=== PATIENT | male | born 1980 | race Caucasian/White ===

== ENCOUNTER 2016-06-22 11:49 | Emergency (ER) | payer OTHER ==
--- NOTE | 2016-06-22 12:05 | Emergency Department Report ---
Stated Complaint: BLOOD IN URINE Time Seen by Provider: 06/22/16 12:01 - HPI History of Present Illness: 35-year-old [place] male comes in today for complaint of rectal bleeding and hematuria 2 months. 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 Patient reports that a couple days ago he had nausea no vomiting denies any fever or chills. Patient has no past medical history. - Exam Physical Exam: Patient's alert and oriented 3. Vascular S1-S2 regular rate and rhythm respiratory clear to auscultation bilaterally abdomen soft nontender nondistended bowel sounds noted MSE screening note: Focused history and physical exam performed. Due to findings the following was ordered: Urinalysis CBC patient be evaluated in main fast track ED Disposition for MSE Condition: Stable
[2016-06-22 12:55] LABS: Hematocrit 41.8 % (35.5-45.6); Mean Corpuscular HGB Conc 34 % (32-34); Mean Corpuscular Hemoglobin 31 pg (28-32); Mean Corpuscular Volume 92 fl (84-94); Platelet Count 187 K/mm3 (140-440); Red Blood Count 4.56 M/mm3 (3.65-5.03); Red Cell Distribution Width 14.8 % (13.2-15.2)
[2016-06-22 13:17] LABS: Bilirubin,Urine NEG (Negative); Blood,Urine NEG (Negative); Ketones,Urine NEG (Negative); Leukocyte Esterase,Urine NEG (Negative); Nitrite,Urine NEG (Negative); Protein,Urine <15 mg/dL mg/dL (Negative); RBC,Urine < 1.0 /HPF (0.0-6.0); WBC,Urine < 1.0 /HPF (0.0-6.0)
--- NOTE | 2016-06-22 17:37 | Emergency Department Report ---
Entered by LAZ FRERER, acting as scribe for KARSON SAWYER PA. <KARSON SAWYER - Last Filed: 06/22/16 17:37> ED Male HPI - General Chief complaint: Urogenital-Male Stated complaint: BLOOD IN URINE Time Seen by Provider: 06/22/16 12:01 Source: patient Mode of arrival: Ambulatory Limitations: No Limitations - History of Present Illness Initial comments: 35 year old male presents to the ED for evaluation of dark red blood from hemorrhoids for several weeks and hematuria. Patient reports last episode of blood in urine was 2 days ago and he is not currently experiencing any pain related to hemorrhoids. 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 He reports associated nausea but denies fever, vomiting, and abdominal pain. He denies rectal bleeding at this time, dysuria, of STI concerns. blood in urine, other (nausea). denies: dysuria, fever - Related Data Previous Rx's Medication Instructions Recorded Last Taken Type Hydrocortisone [Anucort-HC SUPPOS] 25 mg RC BID #1 box 06/22/16 Unknown Rx Allergies Allergy/AdvReac Type Severity Reaction Status Date / Time No Known Allergies Allergy Unverified 06/22/16 12:11 ED Past Medical Hx - Past Medical History Additional medical history: hemorrhoids - Surgical History Past Surgical History?: No - Social History Smoking Status: Current Every Day Smoker Substance Use Type: Alcohol - Medications Home Medications: Home Medications Medication Instructions Recorded Confirmed Last Taken Type Hydrocortisone [Anucort-HC SUPPOS] 25 mg RC BID #1 box 06/22/16 Unknown Rx ED Physical Exam - General Limitations: No Limitations General appearance: alert, in no apparent distress - Head Head exam: Present: atraumatic, normocephalic - Eye Eye exam: Present: normal appearance, PERRL - Neck Neck exam: Present: normal inspection, full ROM (supple) - Respiratory Respiratory exam: Present: normal lung sounds bilaterally. Absent: respiratory distress, wheezes, rales, rhonchi - Cardiovascular Cardiovascular Exam: Present: regular rate, normal rhythm, normal heart sounds - GI/Abdominal GI/Abdominal exam: Present: soft. Absent: distended, tenderness, guarding, rebound - Rectal Rectal exam: Present: normal inspection, normal rectal tone, hemorrhoids ( Fleshy external hemorrhoid. Hemorrhoid is non strangulated and non thrombosed.) , other ([employer] present for exam.) - Neurological Exam Neurological exam: Present: alert, oriented X3 - Psychiatric Psychiatric exam: Present: normal affect, normal mood - Skin Skin exam: Present: warm, dry, intact. Absent: rash ED Course Vital Signs 06/22/16 06/22/16 12:08 17:15 Temperature 98.7 F Pulse Rate 64 71 Respiratory 18 16 Rate Blood Pressure 123/80 Blood Pressure 120/85 [Right] O2 Sat by Pulse 100 98 Oximetry ED Medical Decision Making - Lab Data Result diagrams: 06/22/16 12:29 ED Disposition Disposition: DISCHARGED TO HOME OR SELFCARE Is pt being admited?: No Does the pt Need Aspirin: No Condition: Stable Instructions: Hemorrhoids (ED), High Fiber Diet (ED) Additional Instructions: Refer you to a primary care and a photoresist contact printer for further workup of your hemorrhoids. Using Anusol suppositories as prescribed. Prescriptions: Hydrocortisone [Anucort-HC SUPPOS] 25 mg RC BID #1 box Referrals: PRIMARY CAREMD [Primary Care Provider] - 3-5 Days [facility] [Provider Group] - 3-5 Days BO LOPEZ MD [Staff Physician] - 3-5 Days Forms: Work/School Release Form(ED) <BERTA ALEXANDRA - Last Filed: 06/23/16 01:51> ED Medical Decision Making - Lab Data Result diagrams: 06/22/16 12:29 - Medical Decision Making No blood on UA This documentation as recorded by the NABIL silva REBEKAH,accurately reflects the service I personally performed and the decisions made by me,KARSON SAWYER PA.
[2016-06-22 17:52] VITALS: BP 120/85
== END 2016-06-22 17:19 | disposition home or self-care (01) ==
LOC: ED 11:49
DX: R31.9 Hematuria, unspecified (principal); R11.0 Nausea; F17.200 Nicotine dependence, unspecified, uncomplicated
CPT/HCPCS: 36415; 81001; 85027; 99283

== ENCOUNTER 2017-05-15 13:59 | Emergency (ER) | payer SELFPAY ==
[2017-05-15 14:49] VITALS: BP 129/72
== END 2017-05-15 18:12 | disposition left against medical advice (07) ==
LOC: ED 13:59
DX: K92.1 Melena (principal); Z53.21 Procedure and treatment not carried out due to patient leaving prior to being seen by health care provider